=== PATIENT | female | born 1965 | race Caucasian/White ===

== ENCOUNTER 2016-08-21 19:43 | Emergency (ER) | payer OTHER ==
[~2016-08-21] VITALS: Ht 154.9 cm; Wt 73.6 kg
[~2016-08-21 19:43] MED LIST: ASPIRIN81 M2 PO; Aspirin E.C. PO; COMPAZINE10 MG PO; CORGARD40 MG PO; Chronulac,Cephulac,E PO; DILAUDID2 MG PO; FLEXERIL10 MG; MOTRIN600 MG PO; NADOLOL20 MG PO; NADOLOL40 MG PO; PANTOPRAZOLE SO40 MG PO; PEN-VEE K,VEET500 MG PO; POTASSIUM CHLO20 ME1 PO; PROTONIX40 MG PO; Protonix IV; QUESTRAN PACKET4 GM PO; RIFADIN300 MG PO; Sodium Bicarbonate PO; TRAMADOL HCL50 MG PO; ULTRAM50 MG; ULTRAM50 MG PO; URSODIOL500 MG PO; Ultram PO; VITAMIN D250000 UNIT PO; Xifaxan PO; sodium bicarbonate PO
[2016-08-21 23:05] VITALS: BP 128/77
== END 2016-08-21 23:06 | disposition home or self-care (01) ==
LOC: EME 19:43 → EXP 19:43
DX: M77.32 Calcaneal spur, left foot (principal)
CPT/HCPCS: 73610; 93971; 99281; 99284

== ENCOUNTER 2017-03-19 14:26 | Emergency (ER) | payer OTHER ==
[~2017-03-19] VITALS: Ht 157.5 cm; Wt 74.3 kg
[2017-03-19 15:02] LABS: HEMATOCRIT 37.1 % (36.0-46.0); MCH 31.2 PG (29.0-34.0); MCHC 32.3 G/DL (30.0-36.0); MCV 96.4 FL (83-99); PLATELET COUNT 57 K/uL (156-360); RBC DIS.WIDTH-CV 18.9 % (11.8-14.6); RBC DIS.WIDTH-SD 66.2 % (39-53); RED BLOOD COUNT 3.85 M/uL (3.80-5.20); WHITE BLOOD COUNT 2.5 K/uL (4.1-10.2)
[2017-03-19 15:13] LABS: ALBUMIN 2.4 g/dL (3.2-4.8); CHLORIDE 119 mEq/L (99-109); POTASSIUM 3.3 mEq/L (3.7-5.4); SODIUM 140 mEq/L (136-147)
[2017-03-19 15:16] LABS: GLUCOSE 138 mg/dL (70-99); TOTAL PROTEIN 7.7 g/dL (6.4-8.3)
[2017-03-19 15:18] LABS: TOTAL BILIRUBIN 3.7 mg/dL (0.0-1.0)
[2017-03-19 15:19] LABS: ALKALINE PHOSPHATASE 240 IU/L (3-129); CREATININE 1.9 mg/dL (0.6-1.3); GFR ESTIMATE (CALCULATED) 30 mL/min/
[2017-03-19 15:20] LABS: UREA NITROGEN (BUN) 26 mg/dL (9-23)
[2017-03-19 15:21] LABS: AST (GOT) 40 IU/L (2-34)
[2017-03-19 15:22] LABS: ALT (GPT) 16 IU/L (3-49)
[2017-03-19 15:28] LABS: QUANTITATIVE HCG 6.6 MIU/ML
[2017-03-19 17:47] LABS: APPEARANCE CLEAR ((CLEAR)); BILIRUBIN NEGATIVE; BLOOD NEGATIVE; COLOR AMBER ((YELLOW)); GLUCOSE (STRIP) NEGATIVE; KETONES NEGATIVE; LEUKOCYTES NEGATIVE; NITRITE NEGATIVE; PROTEIN (STRIP) 30; SPECIFIC GRAVITY 1.011 (1.000-1.030); UCUL ADDED? NO; UROBILINOGEN 0.2 MG/DL (0.2-1.0)
[2017-03-19 22:13] VITALS: BP 110/64
== END 2017-03-19 17:24 | disposition home or self-care (01) ==
LOC: EME 14:26
DX: N19 Unspecified kidney failure (principal); K74.60 Unspecified cirrhosis of liver; K76.6 Portal hypertension; M79.89 Other specified soft tissue disorders; K21.9 Gastro-esophageal reflux disease without esophagitis; F32.9 Major depressive disorder, single episode, unspecified; F41.9 Anxiety disorder, unspecified; F17.200 Nicotine dependence, unspecified, uncomplicated; Z88.5 Allergy status to narcotic agent; Z91.041 Radiographic dye allergy status
CPT/HCPCS: 74176; 80053; 81003; 84702; 85027; 99281; 99285; J2270; J7030

== ENCOUNTER 2017-10-01 13:45 | Emergency (ER) | payer OTHER ==
[~2017-10-01] VITALS: Ht 154.9 cm; Wt 75.0 kg
[2017-10-01 14:20] LABS: HEMATOCRIT 35.6 % (36.0-46.0); HEMOGLOBIN 11.7 G/DL (11.9-15.5); MCH 32.7 PG (29.0-34.0); MCHC 32.9 G/DL (30.0-36.0); MCV 99.4 FL (83-99); PLATELET COUNT 51 K/uL (156-360); RBC DIS.WIDTH-CV 18.3 % (11.8-14.6); RBC DIS.WIDTH-SD 66.9 % (39-53); RED BLOOD COUNT 3.58 M/uL (3.80-5.20); WHITE BLOOD COUNT 2.9 K/uL (4.1-10.2)
[2017-10-01 14:29] LABS: ALBUMIN 2.4 g/dL (3.2-4.8); CHLORIDE 113 mEq/L (99-109)
[2017-10-01 14:30] LABS: POTASSIUM 3.8 mEq/L (3.7-5.4); SODIUM 138 mEq/L (136-147)
[2017-10-01 14:32] LABS: GLUCOSE 123 mg/dL (70-99); TOTAL PROTEIN 7.4 g/dL (6.4-8.3)
[2017-10-01 14:34] LABS: TOTAL BILIRUBIN 3.8 mg/dL (0.0-1.0)
[2017-10-01 14:35] LABS: ALKALINE PHOSPHATASE 328 IU/L (3-129)
[2017-10-01 14:36] LABS: CREATININE 1.9 mg/dL (0.6-1.3); GFR ESTIMATE (CALCULATED) 29 mL/min/
[2017-10-01 14:37] LABS: AST (GOT) 69 IU/L (2-34); UREA NITROGEN (BUN) 22 mg/dL (9-23)
[2017-10-01 14:38] LABS: ALT (GPT) 26 IU/L (3-49)
[2017-10-01 16:27] VITALS: BP 175/94
== END 2017-10-01 16:53 | disposition home or self-care (01) ==
LOC: EME 13:45
DX: M16.0 Bilateral primary osteoarthritis of hip (principal); F32.9 Major depressive disorder, single episode, unspecified; F41.9 Anxiety disorder, unspecified; K21.9 Gastro-esophageal reflux disease without esophagitis; M41.9 Scoliosis, unspecified; F17.200 Nicotine dependence, unspecified, uncomplicated; J84.10 Pulmonary fibrosis, unspecified; Z76.82 Awaiting organ transplant status; Z88.5 Allergy status to narcotic agent
CPT/HCPCS: 73502; 80053; 85027; 99281; 99284